=== PATIENT | male | born 1970 | race Caucasian/White ===

== ENCOUNTER 2020-06-28 14:42 | Emergency (ER) | payer SELFPAY ==
[~2020-06-28] VITALS: Ht 165.1 cm; Wt 50.8 kg
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
[2020-06-28] MEDS ORDERED: HYDR-3817 PO (17:09)
[2020-06-28] MEDS ORDERED: CEPH500T PO (17:09)
[2020-06-28] MEDS ORDERED: HYDROcodone/APAP 7.5 MG/325 MG (LORTAB, LORCET PLUS) TABLET PO ONE (17:15)
[2020-06-28 17:22] VITALS: BP 115/80
== END 2020-06-28 17:22 | disposition home or self-care (01) ==
LOC: ER 14:46
DX: S02.641A Fracture of ramus of right mandible, initial encounter for closed fracture (principal); S02.631A Fracture of coronoid process of right mandible, initial encounter for closed fracture; F17.210 Nicotine dependence, cigarettes, uncomplicated; Y04.8XXA Assault by other bodily force, initial encounter
CPT/HCPCS: 70486